=== PATIENT | female | born 1975 | race Caucasian/White ===

== ENCOUNTER 2016-12-18 11:26 | Emergency (ER) | payer OTHER ==
[2016-12-18 12:13] VITALS: BP 124/73
--- NOTE | 2016-12-18 13:16 | ED ---
Throat Pain/Nasal Congestion - History of Current Complaint Chief Complaint: UCRespiratory Time Seen by Provider: 12/18/16 13:05 Hx Obtained From: Patient Onset/Duration: Gradual Onset - has had URI sinus symps for 2 weeks. worse over past 4 days. L ear started hurting over past 3-4 days as well Severity: Worse Since: - last night Associated Signs And Symptoms: Positive: Sinus Discomfort, Nasal Discharge - green dischsrge Cough: Nonproductive - "coughing from irritation in throat - Allergies/Home Medications Allergies/Adverse Reactions: Allergies Allergy/AdvReac Type Severity Reaction Status Date / Time No Known Allergies Allergy Verified 08/05/15 07:53 PMH/Surg Hx/FS Hx/Imm Hx Previously Healthy: Yes Endocrine/Hematology History: Denies: Hx Diabetes, Hx Thyroid Disease Cardiovascular History: Denies: Hx Hypertension Respiratory History: Denies: Hx Asthma, Hx Chronic Obstructive Pulmonary Disease (COPD) GI History: Denies: Hx Ulcer Musculoskeletal History: Denies: Hx Scoliosis Sensory History: Denies: Hx Contacts or Glasses, Hx Hearing Aid Opthamlomology History: Denies: Hx Contacts or Glasses Neurological History: Denies: Hx Headaches, Hx Migraine Psychiatric History: Denies: Hx Anxiety, Hx Depression - Surgical History Surgery Procedure, Year, and Place: cholecystectomy. tonsillectomy. hysterectomy. SINUS Hx Anesthesia Reactions: No Infectious Disease History: No Infectious Disease History: Denies: Hx Clostridium Difficile, Hx Hepatitis, Hx Human Immunodeficiency Virus (HIV), Hx of Known/Suspected MRSA, Hx Shingles, Hx Tuberculosis, Hx Known/ Suspected VRE, Hx Known/Suspected VRSA, History Other Infectious Disease, Traveled Outside the [place] in Last 30 Days - Family History Known Family History: Positive: None Family History: No FHx of malignant hyperthermia. 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 Negative: Fever, Chills Eyes: Negative Positive: Drainage Positive: Ear Ache, Nasal Discharge. Negative: Epistaxis, Sore Throat Cardiovascular: Negative Positive: Cough. Negative: Shortness Of Breath Gastrointestinal: Negative Genitourinary: Negative Skin: Negative Negative: Rash Neurological: Negative Psychological: Normal All Other Systems Reviewed And Are Negative: Yes Physical Exam Triage Information Reviewed: Yes Vital Signs On Initial Exam: Initial Vitals Temp Pulse Resp BP Pulse Ox 98.2 F 95 18 124/73 100 12/18/16 12:09 12/18/16 12:09 12/18/16 12:09 12/18/16 12:09 12/18/16 12:09 Vital Signs Reviewed: Yes Appearance: Positive: Well-Appearing, No Pain Distress, Well-Nourished Skin: Positive: Warm, Skin Color Reflects Adequate Perfusion, Dry ENT: Positive: Pharynx normal - except for thick white PND, Nasal congestion, Nasal drainage, TMs normal - L TM injected. Negative: TM bulging, TM red Neck: Positive: No Lymphadenopathy Respiratory/Lung Sounds: Positive: Clear to Auscultation Cardiovascular: Positive: Normal, RRR Neurological: Positive: Normal, Sensory/Motor Intact, Alert, Oriented to Person Place, Time Psychiatric: Positive: Normal Diagnostics - Vital Signs Vital Signs Temp Pulse Resp BP Pulse Ox 12/18/16 12:09 98.2 F 95 18 124/73 100 - Laboratory Lab Statement: Any lab studies that have been ordered have been reviewed, and results considered in the medical decision making process. EENT Course/Dx - Course Course Of Treatment: Pt requests diflucan 150mg #4. states she gets vaginal yeast infections with antibx use and her PCP has her take one on day one then again in 2-3 days, x 2 and at end of Rx - Differential Diagnoses Differential Diagnoses: Influenza, Sinusitis, URI/Bronchitis - Diagnoses Provider Diagnoses: Sinusitis Discharge - Discharge Plan Condition: Stable Disposition: HOME Prescriptions: Amoxicillin/Clavulanate TAB* [Augmentin TAB 875*] 875 mg PO BID #20 tab Fluconazole 150 MG (NF) [Diflucan 150 mg (NF)] 150 mg PO ONCE #4 tab Patient Education Materials: Sinusitis (ED) Forms: *Work Release Referrals: Heavenly Mcgraw NP [Primary Care Provider] - 3 Days (if no improvement) Additional Instructions: use antibiotic and diflucan as prescribed drink plenty of fluids use your over the counter sinus and cold medication at home as directed
== END 2016-12-18 13:32 | disposition home or self-care (01) ==
LOC: UCEAST 11:26
DX: J32.9 Chronic sinusitis, unspecified (principal); F17.210 Nicotine dependence, cigarettes, uncomplicated
CPT/HCPCS: 99212; G0463

== ENCOUNTER 2018-02-27 10:02 | Emergency (ER) | payer OTHER ==
[2018-02-27 11:10] LABS: ABS Basophils 0.1 10^3/ul (0-0.2); ABS Eosinophils 0.2 10^3/ul (0-0.6); ABS Lymphocytes 1.9 10^3/ul (1.0-4.8); ABS Monocytes 0.5 10^3/ul (0-0.8); ABS Neutrophils 5.5 10^3/ul (1.5-7.7); ABS Nucleated RBC 0 10^3/ul; Eosinophil % 2.8 % (0-6); Hematocrit 42 % (35-47); Hemoglobin 14.2 g/dl (12.0-16.0); Mean Corpuscular HGB Conc 34 g/dl (31-36); Mean Corpuscular Hemoglobin 30 pg (27-31); Mean Corpuscular Volume 88 fL (80-97); Mean Platelet Volume 7.9 um3 (7.4-10.4); Nucleated Red Blood Cells % 0; Platelet Count 289 10^3/ul (150-450); Red Blood Count 4.72 10^6/ul (4.0-5.4); Red Cell Distribution Width 13 % (10.5-15); White Blood Count 8.1 10^3/ul (3.5-10.8)
[2018-02-27 11:19] LABS: INR 0.98 (0.77-1.02)
[2018-02-27 11:33] LABS: EGFR Non-African American 86.6 (>60)
--- NOTE | 2018-02-27 11:36 | RAD ---
HISTORY: Syncope COMPARISONS: August 05, 2009 TECHNIQUE: Multiple contiguous axial CT scans were obtained of the head without intravenous contrast. FINDINGS: HEMORRHAGE/INFARCT: There is no hemorrhage or acute infarct. MASSES/SHIFT: There is no mass or shift. EXTRA-AXIAL SPACES: There are no extra-axial fluid collections. There is stable dural ossification along the left tentorium. SULCI AND VENTRICLES: The sulci and ventricles are normal in size and position for the patient's stated age. CEREBRUM: There are no focal parenchymal abnormalities. BRAINSTEM: There are no focal parenchymal abnormalities. CEREBELLUM: There are no focal parenchymal abnormalities. VESSELS: The vessels are grossly normal. PARANASAL SINUSES: The paranasal sinuses are clear. ORBITS: The orbits are unremarkable. BONES AND SOFT TISSUE: No bone or soft tissue abnormalities are noted. OTHER: None IMPRESSION: NO ACUTE INTRACRANIAL PATHOLOGY.
--- NOTE | 2018-02-27 11:41 | RAD ---
Indication: Syncope. History of tobacco use. Comparison: January 27, 2008 Technique: Upright AP 1120 hours Report: Elevated lung volumes. Clear lungs and pleural spaces. Negative for pneumothorax. The heart, pulmonary vasculature, and mediastinal contours are unremarkable. Unremarkable osseous structures and soft tissue contours. IMPRESSION: 1. Elevated lung volumes favoring obstructive lung disease given history of smoking. 2. No evidence for acute intrathoracic disease.
[2018-02-27] MEDS ORDERED: Iohexol 350* (CONTRAST) 500 ML MDV IV ONE (13:09)
[2018-02-27] MEDS ORDERED: Ibuprofen TAB* 400 MG PO ONE (13:12)
[2018-02-27 13:48] LABS: Urine Appearance Clear; Urine Blood 1+ (Negative); Urine Color Yellow; Urine Ketones Negative (Negative); Urine Protein Negative (Negative); Urine Specific Gravity 1.012 (1.010-1.030); Urine Urobilinogen Negative (Negative)
--- NOTE | 2018-02-27 14:26 | RAD ---
Indication: Elevated d-dimer. Contrast: Administered 70.1 ml of OMNIPAQUE 350 mg/ml CTA of the chest was performed after IV contrast demonstration. Coronal and sagittal reconstructed images were obtained. The pulmonary arterial tree is well opacified. There are no filling defects present to suggest pulmonary embolus. The thoracic aorta demonstrates no evidence of aortic dissection. No aneurysmal dilatation is noted. There is no mediastinal or hilar adenopathy. Inferior thyroid lobes are unremarkable. The trachea and major bronchi appear patent. Lung crabtree demonstrate no pleural fluid, nodules or masses. Heart is of normal size without evidence of pericardial effusion. The visualized abdominal organs are unremarkable. IMPRESSION: No evidence of pulmonary embolus is noted. No alveolar consolidation is noted.
[2018-02-27 14:48] VITALS: BP 132/87
--- NOTE | 2018-02-27 23:43 | ED ---
Kanwal Muir Julia, scribed for Yani Montes MD on 02/27/18 at 1046 . Syncope/Near Syncope - HPI Summary HPI Summary: This patient is a 42 year old F BIBA to [facility] accompanied by her with a chief complaint of a syncopal episode this morning after urinating. Patient reports nausea, diaphoresis, and spasms of her left middle back prior to syncopal episodes, but states she did not feel like she was going to pass out. She states that all her symptoms have resolved and has no other complaints at this time. She reports a very mild headache prior to arrival, but is now resolved. She states she didnt change anything about her normal routine this morning. She believes that she bit her tongue before she passed out. Patient denies fever, bowel or urinary incontinence CP, calf pain, and head injury. Her , who found her post syncope, states it appears that she did not hit her head. He states she wasnt responsive at first but was breathing and staring "blankly" but eventually became alert again after about a minute. She states she feels better but is still foggy mentally. She is not taking any medications regularly and has no allergies. - History Of Current Complaint Chief Complaint: EDSyncope Time Seen by Provider: 02/27/18 10:34 Hx Obtained From: Patient, Family/Clerical Dentist Assistant Onset/Duration: Sudden Onset, Resolved Timing: Minutes Context: Unwitnessed, Loss Of Consciousness Activity At Onset: Other - standing Associated Head Trauma: No Aggravating Factor(s): Nothing Alleviating Factor(s): Nothing Associated Signs And Symptoms: Diaphoresis, Lightheadedness, Other - nausea, bit tongue, muscle spasms - Allergies/Home Medications Allergies/Adverse Reactions: Allergies Allergy/AdvReac Type Severity Reaction Status Date / Time No Known Allergies Allergy Verified 08/05/15 07:53 PMH/Surg Hx/FS Hx/Imm Hx Endocrine/Hematology History: Denies: Hx Diabetes, Hx Thyroid Disease Cardiovascular History: Denies: Hx Hypertension Respiratory History: Denies: Hx Asthma, Hx Chronic Obstructive Pulmonary Disease (COPD) GI History: Denies: Hx Ulcer Musculoskeletal History: Denies: Hx Scoliosis Sensory History: Denies: Hx Contacts or Glasses, Hx Hearing Aid Opthamlomology History: Denies: Hx Contacts or Glasses Neurological History: Denies: Hx Headaches, Hx Migraine Psychiatric History: Denies: Hx Anxiety, Hx Depression - Surgical History Surgery Procedure, Year, and Place: cholecystectomy. tonsillectomy. hysterectomy. SINUS Hx Anesthesia Reactions: No Infectious Disease History: No Infectious Disease History: Denies: Hx Clostridium Difficile, Hx Hepatitis, Hx Human Immunodeficiency Virus (HIV), Hx of Known/Suspected MRSA, Hx Shingles, Hx Tuberculosis, Hx Known/ Suspected VRE, Hx Known/Suspected VRSA, History Other Infectious Disease, Traveled Outside the [place] in Last 30 Days - Family History Known Family History: Positive: Cardiac Disease - mother [place] age 60, Other - skin CA Family History: No FHx of malignant hyperthermia. No FHx of anesthesia reaction - Social History Occupation: Employed Part-time Lives: With Family Alcohol Use: Rare Substance Use Type: Reports: None Hx Tobacco Use: Yes Smoking Status (MU): Light Every Day Tobacco Smoker Type: Cigarettes Amount Used/How Often: LESS THAN 1/2 PPD Have You Smoked in the Last Year: Yes Review of Systems Positive: Skin Diaphoresis. Negative: Fever Negative: Chest Pain Gastrointestinal: Negative - incontinence Positive: Nausea Positive: no symptoms reported Positive: Myalgia - back spasms Positive: Headache, Syncope All Other Systems Reviewed And Are Negative: Yes Physical Exam - Summary Physical Exam Summary: Appearance: well appearing, minimal pain distress, Well-nourished Skin: Warm, color reflects adequate perfusion Head: Normal Head/Face inspection Eyes: Conjunctiva clear ENT: minimal redness under the right side of the tongue, but is otherwise normal Neck: Supple, no nodes, no JVD. Respiratory: Lungs clear, Normal breath sounds, no respiratory distress Cardio: RRR, No murmur, pulses normal, brisk capillary refill Abdomen: soft, nontender Bowel sounds: present Musculoskeletal: Strength Intact/ ROM intact. No calf tenderness. No edema. Psychological: Normal Neuro: Alert, muscle tone normal, no focal deficit Triage Information Reviewed: Yes Vital Signs On Initial Exam: Initial Vitals Temp Pulse Resp BP Pulse Ox 98.7 F 77 17 112/63 99 02/27/18 10:33 02/27/18 10:33 02/27/18 10:33 02/27/18 10:33 02/27/18 10:33 Vital Signs Reviewed: Yes Diagnostics - Vital Signs Vital Signs Temp Pulse Resp BP Pulse Ox 02/27/18 10:33 98.7 F 77 17 112/63 99 - Laboratory Result Diagrams: 02/27/18 10:55 02/27/18 10:55 Lab Statement: Any lab studies that have been ordered have been reviewed, and results considered in the medical decision making process. - Radiology CXR Radiology Interpretation Completed By: Radiologist - 1. Elevated lung volumes favoring obstructive lung disease given history of smoking. 2. No evidence for acute intrathoracic disease. ED Physician has reviewed this report. - CT Brain CT CT Interpretation Completed By: Radiologist - NO ACUTE INTRACRANIAL PATHOLOGY. ED Physician has reviewed this report. Chest CTA CT Interpretation Completed By: Radiologist - No evidence of pulmonary embolus is noted. No alveolar consolidation is noted. ED Physician has reviewed this report. - EKG 1053 Cardiac Rate: NL EKG Rhythm: Sinus Rhythm - at [address] Segment: Non-Specific Ectopy: None EKG Interpretation: nml AVIVCT, nml QTc, nml axis EKG Comparison: Other - no prior EKG Re-Evaluation - Re-Evaluation 1 Re-Evaluation Time: 12:40 Comment: Informed pt of results and will perform a CTA of the chest. Pt is agreeable to CTA. Course/Dx Course Of Treatment: Pt presents post syncopal episode alert and oriented. She reports nausea and diaphoreis prior to fall but has no complaints at this time. She believes that she bit her tongue. Her reports a blank stare post syncope that resolved in roughly a minute. Lab results reveal an elevated D- Dimer of 236; labs are otherwise unremarkable. A Brain CT is negative. CXR is negative. Chest CT is ordered due to elevated D-dimer. Chest CTA is negative for PE. Pt will be discharged and is instructed to follow up with her PCP. - Diagnoses Provider Diagnoses: Syncope - Physician Notifications Discussed Care of Patient With: Amber Bender - neurologist Time Discussed With Above Provider: 12:36 Instructed by Provider To: Other - She states this is not a seizure that needs acute EEG monitoring, but she would like the Pt to follow up with her PCP and PCP can order an EEG as an outpatient if needed. Discharge - Discharge Plan Condition: Stable Disposition: HOME Patient Education Materials: Syncope (ED) Referrals: Heavenly Mcgraw NP [Primary Care Provider] - 2 Days Additional Instructions: We did many tests to make sure that you did not have a seizure, stroke, heart attack or blood clot to your lung that would have caused you to pass out today. We did not find an emergency condition, so you are safe to be discharged. We can't always explain every pass-out spell that patients have. You will want to have definite follow up with your PCP, Heavenly Mcgraw so she can follow up about this episode. She may want to order an EEG as an outpatient to see if there is evidence of a seizure disorder. Dr. Bender today did not think you needed an emergency EEG. Return to the ER if you have new or worsening symptoms. The documentation as recorded by the Kanwal saenz Julia accurately reflects the service I personally performed and the decisions made by me, Yani Montes MD.
== END 2018-02-27 14:48 | disposition home or self-care (01) ==
LOC: ED 10:02
DX: R55 Syncope and collapse (principal); R42 Dizziness and giddiness; R11.0 Nausea; F17.210 Nicotine dependence, cigarettes, uncomplicated
CPT/HCPCS: 36415; 70450; 71045; 71275; 80053; 80307; 80320; 81003; 81015; 82550; 83605; 83735; 84443; 84484; 85025; 85379; 85610; 85730; 87086; 93005; 99283; A9270-GY; G0480; Q9967

== ENCOUNTER 2018-03-11 15:36 | Emergency (ER) | payer OTHER ==
--- NOTE | 2018-03-11 15:52 | UC ---
Lower Extremity/Ankle HPI - HPI Summary HPI Summary: 43 yo WF presents with right ankle pain worsening over the last 5 days. She tells me that 5 days ago she was spring cleaning and was lifting a lot of heavy items. Tripped over a mop buckets a couple of times, but was nothing that caused her discomfort at the time. Since that day has been having "throbbing" pain on then inside of her right ankle. Has been taking ibuprofen without relief. Denies numbness or tingling. Is able to bear weight and is ambulating without assistance. - History of Current Complaint Stated Complaint: ANKLE INJURY Time Seen by Provider: 03/11/18 15:52 Hx Obtained From: Patient Severity Initially: Mild Severity Currently: Severe Pain Intensity: 10 Pain Scale Used: 0-10 Numeric Aggravating Factor(s): Standing, Ambulation Alleviating Factor(s): Rest Able to Bear Weight: Yes - Allergies/Home Medications Allergies/Adverse Reactions: Allergies Allergy/AdvReac Type Severity Reaction Status Date / Time No Known Allergies Allergy Verified 03/11/18 15:53 PMH/Surg Hx/FS Hx/Imm Hx - Additional Past Medical History Additional PMH: None Previously Healthy: Yes - Surgical History Surgical History: Yes Surgery Procedure, Year, and Place: cholecystectomy. tonsillectomy. hysterectomy. SINUS - Family History Known Family History: Positive: None, Cardiac Disease - mother [place] age 60, Other - skin CA Family History: No FHx of malignant hyperthermia. No FHx of anesthesia reaction - Social History Occupation: Employed Full-time Lives: With Family Alcohol Use: Rare Substance Use Type: None Smoking Status (MU): Light Every Day Tobacco Smoker Type: Cigarettes Amount Used/How Often: LESS THAN 1/2 PPD Have You Smoked in the Last Year: Yes When Did the Patient Quit Smoking/Using Tobacco: 2014 Household Exposure Type: Cigarettes - Immunization History Most Recent Influenza Vaccination: 2013 Most Recent Tetanus Shot: 2008 Review of Systems Constitutional: Negative Skin: Negative Respiratory: Negative Cardiovascular: Negative Gastrointestinal: Negative Neurovascular: Negative Musculoskeletal: Other: - Right ankle pain All Other Systems Reviewed And Are Negative: Yes Physical Exam - Summary Physical Exam Summary: GENERAL: NAD. WDWN. No pain distress. SKIN: No rashes, sores, lesions, or open wounds. NECK: Supple. Nontender. No lymphadenopathy. CHEST: No accessory muscle use. Breathing comfortably and in no distress. CV: RRR. Without m/r/g. Pulses intact PT and DP. Brisk cap refill. MSK: Mild TTP about right medial malleolus. Strength 5/5. No edema or obvious bony deformities. Negative talar tilt. No increased laxity. Negative Jackman test. NEURO: Alert. Sensations intact and symmetric B/L LEs PSYCH: Age appropriate behavior. Triage Information Reviewed: Yes Lower Extremity Course/Dx - Course Course Of Treatment: XR: IMPRESSION: SOFT TISSUE SWELLING, NO FRACTURE IS SEEN. Suspect ankle sprain/strain. Gel ankle splint. Crutches. RICE and mobic. F/u with ortho if needed. - Differential Dx/Diagnosis Provider Diagnoses: Right ankle sprain Discharge - Sign-Out/Discharge Documenting (check all that apply): Discharge/Admit/Transfer - Discharge Plan Condition: Stable Disposition: HOME Prescriptions: Meloxicam 7.5 mg PO BID PRN #20 tab PRN Reason: Pain Patient Education Materials: Ankle Sprain (DC) Forms: *Work Release Referrals: Heavenly Mcgraw NP [Primary Care Provider] - Brenton Ayala MD [Medical Doctor] - If Needed Additional Instructions: If you develop a fever, shortness of breath, chest pain, new or worsening symptoms - please call your PCP or go to the ED. 1) Continue to rest, ice, and elevate your ankle as much as possible 2) Use the crutches as much as possible to keep weight off of your ankle/foot 3) Do not take ibuprofen in addition to the Meloxicam as these medications are similar and may interact. May take tylenol if needed. 4) If your symptoms worsen or persist, please call Orthopedics at the number below to schedule a follow up appointment. - Billing Disposition and Condition Condition: STABLE Disposition: HOME
[2018-03-11 15:58] VITALS: BP 128/82
--- NOTE | 2018-03-11 16:24 | RAD ---
INDICATION: Right ankle injury. TECHNIQUE: 3 views of the right ankle were obtained. FINDINGS: Soft tissue swelling is noted along the anterolateral aspect of the ankle. No fracture is seen. Joint spaces appear maintained. IMPRESSION: SOFT TISSUE SWELLING, NO FRACTURE IS SEEN.
== END 2018-03-11 16:39 | disposition home or self-care (01) ==
LOC: UCEAST 15:36
DX: S93.401A Sprain of unspecified ligament of right ankle, initial encounter (principal); W18.40XA Slipping, tripping and stumbling without falling, unspecified, initial encounter; Y93.E5 Activity, floor mopping and cleaning; Y92.009 Unspecified place in unspecified non-institutional (private) residence as the place of occurrence of the external cause; Z87.891 Personal history of nicotine dependence
CPT/HCPCS: 99213; G0463

== ENCOUNTER 2019-09-28 17:18 | Emergency (ER) | payer OTHER ==
--- OUTSIDE RECORDS SUMMARY | 2019-09-28 18:41 | XMS REPORT | Continuity of Care Document ---
:1975 External Reference #:[id number] Author Name Heavenly Mcgraw N.P. 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 Onset: Chronic back pain Heavenly Mcgraw N.P. Onset: 04/28/2016 Tibialis tendinitis Brenton Ayala MD Onset: 03/28/2018 Social History Type Date Description Comments Sex Unknown ETOH Use Rarely consumes alcohol Once or twice a year Tobacco Use Start: Unknown End: Patient is a former pt. stopped smoking Unknown smoker 08/30/18 Smoking Status Reviewed: 09/13/19 Patient is a former pt. stopped smoking smoker 08/30/18 Exercise Exercises sporadically Type/Frequency Allergies, Adverse Reactions, Alerts Description No Known Drug Allergies Medications Active Medications SIG Qnty Indications Ordering Date Provider Cleocin 1 applicator 1units Heavenly Varhenry, 2% Cream intravaginally at N.P. 9 bedtime for 7 nights Metronidazole apply externally 45gm L71.8 Heavenly Varn, 0.75% twice a day N.P. 9 Cream Chantix Continuing 1 by mouth twice a 28tabs Heavenly Varn, Month Beck day N.P. 9 1mg Tablets Nicotrol 1 inhaler as needed 168units F17.210 Heavenly Mcgraw, 10mg Inhaler not to exceed 16 in N.P. 8 a day Fluconazole one by mouth every 3 4tabs Heavenly Mariannen, 150mg days for 4 doses N.P. 8 Tablets Ibuprofen by mouth three times 60tabs Heavenly Lopesn, 800mg Tablets a day as needed mdd N.P. 7 3 Cyclobenzaprine HCL take 1 tablet by 30tabs Heavenly Lopesn, 5mg mouth three times a N.P. 4 Tablets day if needed History Medications Cleocin 1 applicator 1unanette Mcgraw, 07/23/2019 - 2% Cream intravaginally at N.P. 07/29/2019 bedtime for 7 nights Chantix Starting take as directed (0.5 30tabs Heavenly Lopesn, 07/23/2019 - Month Beck mg by mouth daily x3 N.P. 08/22/2019 0.5mg X days, 0.5 mg twice a 11 & 1 mg X 42 day x 4 days, then 1 Tablets mg twice a day up to three months) Azithromycin two tabs day one, one 6tabs J20.9 Heavenly Lopesn, 03/30/2019 - 250mg daily till gone N.P. 04/09/2019 Tablets Cleocin 1 applicator 1units J20.9 Heavenly Lopes, 03/30/2019 - 2% Cream intravaginally at N.P. 04/06/2019 bedtime for 7 nights Benzonatate one by mouth three 30caps J20.9 Heavenly Mariannen, 03/30/2019 - 200mg times daily as needed N.P. 04/13/2019 Capsules for cough Immunizations CPT Code Status Date Vaccine Reaction Lot # [id number] Given 09/13/2019 Tdap - No immediate reaction [id number] Tetanus/Diptheria/Acellul ar Pertussis [id number] Given 09/13/2019 Influenza Virus Vaccine, No immediate reaction [id number] Quadrivalent, Split, Preservative Free [id number] Given 10/16/2018 Influenza Virus Vaccine, [id number] Quadrivalent, Split, Preservative Free Vital Signs Date Vital Result Comment 09/13/2019 11:05am Height 65 inches 5'5" Weight 1786.00 lb Heart Rate 80 /min BP Systolic Sitting 135 mmHg BP Diastolic Sitting 74 mmHg Body Temperature 97.8 F O2 % BldC Oximetry 100 % BMI (Body Mass Index) 297.2 kg/m2 03/30/2019 2:06pm Height 65 inches 5'5" Weight 179.12 lb Heart Rate 80 /min BP Systolic 126 mmHg BP Diastolic 84 mmHg Body Temperature 97.3 F O2 % BldC Oximetry 98 % BMI (Body Mass Index) 29.8 kg/m2 Results Description No Information Available Procedures Date Code Description Status 11/09/2018 [id number] Mammogram Completed Medical Devices Description No Information Available Encounters Type Date Location Provider Dx Diagnosis Office Visit 03/30/2019 Services Rep Internal Heavenly Mcgraw J20.9 Acute bronchitis , 1:40p Medicine - Ccmob N.P. unspecified Assessments Date Code Description Provider 09/13/2019 L71.8 Other rosacea Heavenly Mcgraw, N.P. 09/13/2019 Z23 Encounter for immunization Heavenly Mcgraw N.P. 03/30/2019 J20.9 Acute bronchitis, unspecified Heavenly Mcgraw, N.P. Plan of Treatment 09/13/2019 - Heavenly Mcgraw, N.P.L71.8 Other rosaceaNew Medication:Metronidazole 0.75 % - apply externally twice a dayComments:For your rosacea:I have prescribed Metronidazole cream. Apply this twice daily. I have referred you to a shuttle car operator for further management.Referral:Ayesha Kovacs MD, [id number] Encounter for immunizationComments:You have received your seasonal flu and TDAP shots today. Your arms may be a little sore for a few days. Functional Status Description No Information Available Mental Status Description No Information Available Referrals Refer to Reason for Referral Status Appt Date Ayesha Kovacs MD Patient with rosacea, referred for management Sent /0000 and general mole check. [address] [place] [address], [address] [place] [address] [phone]
[2019-09-28 18:48] VITALS: BP 141/75
--- NOTE | 2019-09-28 18:58 | UC ---
Throat Pain/Nasal Simone HPI - HPI Summary HPI Summary: One week of sinus pressure, galeas and low grade fever per pt. also has some cough and irritated throat from coughing. 2 sick contacts. no otc meds used. hx of sinus surgery - History of Current Complaint Chief Complaint: UCRespiratory Stated Complaint: POSS SINUS INFECTION Time Seen by Provider: 09/28/19 18:42 Hx Obtained From: Patient Hx Last Menstrual Period: hysterectomy Pain Intensity: 0 - Epiglottits Risk Factors Epiglottis Risk Factors: Negative - Allergies/Home Medications Allergies/Adverse Reactions: Allergies Allergy/AdvReac Type Severity Reaction Status Date / Time No Known Allergies Allergy Verified 09/28/19 18:49 PMH/Surg Hx/FS Hx/Imm Hx - Additional Past Medical History Additional PMH: hx of sinus issues. Previously Healthy: Yes - Surgical History Surgical History: Yes Surgery Procedure, Year, and Place: cholecystectomy. tonsillectomy. hysterectomy. SINUS - Family History Known Family History: Positive: None, Cardiac Disease - mother [place] age 60, Other - skin CA Family History: No FHx of malignant hyperthermia. No FHx of anesthesia reaction - Social History Alcohol Use: Rare Substance Use Type: None Smoking Status (MU): Light Every Day Tobacco Smoker Type: Cigarettes Amount Used/How Often: LESS THAN 1/2 PPD Have You Smoked in the Last Year: Yes When Did the Patient Quit Smoking/Using Tobacco: 2013 Household Exposure Type: Cigarettes - Immunization History Most Recent Influenza Vaccination: 2013 Most Recent Tetanus Shot: 2008 Review of Systems All Other Systems Reviewed And Are Negative: Yes Constitutional: Negative: Fever, Chills Skin: Negative: Rash ENT: Positive: Sore Throat, Sinus Congestion, Sinus Pain/Tenderness. Negative: Dental Pain Respiratory: Positive: Cough. Negative: Shortness Of Breath Neurological: Negative: Headache Physical Exam Triage Information Reviewed: Yes Appearance: Well-Appearing Vital Signs: Initial Vital Signs Temp 98.1 F 09/28/19 18:43 Pulse 75 09/28/19 18:43 Resp 20 09/28/19 18:43 BP 141/75 09/28/19 18:43 Pulse Ox 98 09/28/19 18:43 Vital Signs Reviewed: Yes ENT: Positive: Pharynx normal, TMs normal, Uvula midline. Negative: Dental tenderness, Sinus tenderness Neck exam: Normal Respiratory Exam: Normal Cardiovascular Exam: Normal Neurological: Positive: Alert Skin: Negative: Rashes Throat Pain/Nasal Course/Dx - Course Course Of Treatment: Viral sinusitis with normal vitals and normal exam. Pt. wanting antibx and we disc the risks and side effects. Explained that she may take incurring the risk but her symptoms may not improve. REturn if worsening. - Differential Dx/Diagnosis Differential Diagnosis/HQI/PQRI: Pharyngitis, Sinusitis, URI Provider Diagnosis: Sinusitis Discharge ED - Sign-Out/Discharge Documenting (check all that apply): Patient Departure All imaging exams completed and their final reports reviewed: No Studies - Discharge Plan Condition: Good Disposition: HOME Prescriptions: Amoxicillin/Clavulanate TAB* [Augmentin TAB 500 mg*] 500 mg PO BID 7 Days #14 tab Fluconazole 150 MG TAB* [Diflucan 150 MG TAB*] 150 mg PO ONCE 1 Days #1 tablet Patient Education Materials: Sinusitis (ED) Referrals: Heavenly Mcgraw [facility] [Primary Care Provider] - Additional Instructions: I do not think the antibiotic will work since this may be viral but we can prescribe it today. - Billing Disposition and Condition Condition: GOOD Disposition: Home
== END 2019-09-28 19:26 | disposition home or self-care (01) ==
LOC: UCEAST 17:18
DX: J32.9 Chronic sinusitis, unspecified (principal); R05 Cough; F17.210 Nicotine dependence, cigarettes, uncomplicated
CPT/HCPCS: 99212; G0463